=== PATIENT | female | born 1995 | race Caucasian/White ===

== ENCOUNTER 2025-04-12 14:01 | Emergency (ER) | payer OTHER ==
[~2025-04-12] VITALS: Ht 167.6 cm; Wt 78.5 kg
[2025-04-12 15:07] LABS: PLATELET COUNT (AUTO) 285 K/uL (150-450); RED BLOOD CELL COUNT(AUTO) 3.84 MIL/uL (4.0-5.2); RED CELL DISTRIBUTION WIDTH 15.5 % (11.5-15.0); WHITE BLOOD COUNT (AUTO) 10.8 K/uL (4.3-11.0)
[2025-04-12 15:14] LABS: CALCIUM, SERUM 8.4 mg/dL (8.5-10.1); CREATININE 1.0 mg/dL (0.6-1.3); SODIUM SERUM 131 mmol/L (136-145); UREA NITROGEN, BLOOD 14 mg/dL (7-18)
[2025-04-12 15:19] LABS: INR 0.96 (0.91-1.10)
[2025-04-12 15:20] LABS: ASPARTATE AMINOTRANSFERASE 44 U/L (15-37); TOTAL PROTEIN, SERUM 8.3 g/dL (6.4-8.2)
[2025-04-12] MEDS: LORAZEPAM INJ 2 MG/ML VIAL IVP ONE (15:30)
[2025-04-12 15:32] LABS: ALCOHOL, BLOOD < 3 mg/dL (0-10)
[2025-04-12 16:25] LABS: PREGNANCY TEST URINE QUAL NEGATIVE (NEGATIVE)
[2025-04-12 17:56] VITALS: BP 110/70; TEMP 98.5; O2SAT 98
== END 2025-04-12 17:58 | disposition home or self-care (01) ==
LOC: ER 14:05
DX: R56.9 Unspecified convulsions (principal); E20.9 Hypoparathyroidism, unspecified; F41.9 Anxiety disorder, unspecified; F84.0 Autistic disorder; I51.9 Heart disease, unspecified
CPT/HCPCS: 99285; 96374; 93005; 71045; 70450; 85025; 80048; 80076; 84703; 36415; 85730; 84702; 80320; J2060; G0480